=== PATIENT | male | born 1975 | race Caucasian/White ===

== ENCOUNTER 2017-07-09 05:34 | Observation (INO) | payer OTHER, SELFPAY ==
[2017-07-09] VITALS (11 sets, daily range): BP systolic 109–132; BP diastolic 68–91; PULSE 71–99; RESP 16–18; TEMP 36.8–38.7; O2SAT 93–100; BMI 26.8; BMI 26.7
--- NOTE | 2017-07-09 05:43 | CT_ITS ---
STUDY: CT ABDOMEN AND PELVIS WITHOUT CONTRAST REASON FOR EXAM: Male, 42 years old. Right lower quadrant pain, nausea RADIATION DOSAGE (If Supplied By Facility): CTDIvol = ( 8.56 ) mGy, DLP = ( 425.52 ) mGycm TECHNIQUE: Transaxial 2.5 mm images were obtained from the dome of the diaphragm to the symphysis pubis without oral contrast, and without intravenous contrast. Sagittal and coronal images were reconstructed. Noncontrast Individualized dose optimization techniques were used for this CT. COMPARISON: None. FINDINGS: The visualized lung bases are unremarkable. The visualized portions of the heart are within normal limits. Normal liver. Normal gallbladder and extrahepatic biliary system. Normal spleen. Normal pancreas. Normal bilateral adrenal glands. Normal right kidney. Normal left kidney. Normal visualized stomach. Normal small intestine. Normal colon. There is a tubular, thick-walled retrocecal appendix (>10 mm), consistent with acute appendicitis. There are multiple small appendicoliths the largest with proximal obstruction measures 0.63 cm. There is periappendiceal fat stranding.. Normal abdominal aorta. Normal inferior vena cava. Normal retroperitoneum. Decompressed Normal urinary bladder. Normal visualized prostate gland. Normal abdominal wall. Normal osseous structures. CT/Abdomen/Pelvis without Cont IMPRESSION: Acute appendicitis with periappendiceal inflammation, proximal obstructing small appendicolith. There is no abscess, collection, perforation or obstruction. These findings were discussed on the telephone with Dr. Johnson at 650 hrs. EST on 07/09/2017. Electronically Signed: Emma Monge MD at 6:52 EST , Service support ,
--- NOTE | 2017-07-09 05:44 | ED.VISSUMM ---
- ER Visit Summary Date of Service: 07/09/17 Chief Complaint: [Abdominal pain] History of Present Illness: The patient is a 42 M [who presents the emergency department with right lower abdominal pain. It started at 2 PM yesterday. It has progressively worsened. He has associated nausea. No fevers or chills. Bowel movements have been normal. Urination has been normal. He has had an umbilical hernia repair 9 years ago but no other abdominal surgeries. He does feel bloated. Appetite is decreased. The pain is worse with movement. He states is an 8 out of 10 with movement of 3 out of 10 with lying still] Physical Examination: [] WN WD NAD PERRL EOMI MMM NECK supple and nontender, no masses RRR no murmur rub or gallop, no peripheral edema, symmetric radial pulses CTAB no respiratory distress ABDOMEN is soft with tenderness to palpation in the right lower quadrant right side and right pelvis, normal bowel sounds, no distension, no rebound or guarding SKIN is warm and dry no rashes Alert and Oriented x3, CN II-XII in tact, no motor or sensory deficits, gait normal No lymphadenopathy Test Results: [] Emergency Department Course and Treatment: [Patient was given fluids pain medicine and nausea medicine. Screening labs were obtained. CT was obtained. Patient had a leukocytosis of 14.4. CT consistent with acute appendicitis. Patient was ordered 2 g of cefotetan 10. Dr. Sutton was contacted and will see the patient in the emergency department.] Treatment Plan: [] Disposition: [2 OR] Impression: [Acute appendicitis] This note was generated with [employer] dictation software. It may contain incorrect words, spelling, and punctuation that were not noted in review of the chart prior to signing ED Disposition - Plan for ED Patient: Chief Complaint: Abd Pain Referrals: Radha Mishra [Primary Care Provider] -
[2017-07-09] MEDS: Ondansetron 4 MG/2 ML Vial IV (05:53)
[2017-07-09] MEDS: 0.9% Normal Saline 1,000 ML 1000 ML IV (05:53)
[2017-07-09 06:09] LABS: Red Blood Cells-Urine 0 SEEN /hpf (0-5)
[2017-07-09 06:15] LABS: Color, Urine Yellow (Yellow); Glucose, Dipstick Normal (Normal); Ketone-Dipstick 15 mg/dl (Negative); Leukocyte Esterase-Dipstick 25 /ul (Negative); Nitrite-Dipstick Negative (Negative); Occult Blood-Urine Negative /ul (Negative); Protein-Dipstick 30 mg/dl (Negative); Specific Gravity, Urine 1.025 (1.002-1.030); Urine Clarity Clear (Clear); Urine Urobilinogen 1 mg/dl (Normal)
[2017-07-09 06:25] LABS: Absolute Lymphocyte Count 1.79 X10^3/ul (0.83-4.51); Absolute Neutrophil Count 11.5 X10^3/uL (2.0-7.7); Basophil# 0.02 X10^3/uL; Basophil% 0.1 % (0-1); Eosinophil# 0.09 X10^3/uL; Eosinophils% 0.6 % (0-5); Hematocrit 45.8 % (40-54); Hemoglobin 16.4 g/dl (13.0-16.5); Lymphocyte # 1.79 X10^3/ul (4.0); Lymphocyte % 12.5 % (19-41); Mean Corp Hgb Conc 35.8 g/gl (32-36); Mean Corpuscular Hgb 30.9 pg (27.0-32.0); Mean Corpuscular Volume 86.4 fL (80-94); Mean Platelet Vol. 10.7 fl (6.2-12.0); Monocyte# 0.98 X10^3/uL; Monocyte% 6.8 % (0-10); Neutrophil # 11.45 X10^3/uL (2.7-7.7); Neutrophil % 79.8 % (47-70); Platelet Count 295 K/mm3 (150-450); RBC Distribution Width CV 12.5 % (11.6-14.6); RBC Distribution Width SD 39.2 fl (35.1-43.9); White Blood Count 14.4 K/mm3 (4.4-11.0)
[2017-07-09 06:27] LABS: POSITIVE COUNT NO; POSITIVE DIFFERENTIAL NO; POSITIVE MORPHOLOGY NO
[2017-07-09 06:33] LABS: Urine Bilirubin Dipstick 1 mg/dL (Negative)
[2017-07-09 06:34] LABS: Bacteria RARE /hpf (None Seen); Mucous, Urine 2+ /hpf (<or=2+); Squamous Epithelial Cells - UA 0-5 SEEN /hpf (0-5); White Blood Cells 0-5 SEEN /hpf (0-5)
[2017-07-09 06:39] LABS: ALB/GLOB Ratio 1.1 RATIO (0.9-2.4); AST(SGOT) 23 U/L (15-37); Alanine Aminotransfer ALT/SGPT 56 U/L (16-61); Albumin, Serum 4.2 g/dL (3.2-5.0); Alkaline Phosphatase 79 U/L (45-117); Anion Gap 9 (5-15); BUN 10 mg/dL (7-18); Calcium,Total 9.2 mg/dL (8.5-10.1); Chloride 103 mmol/L (98-107); EST Glomerular Filtration Rate 87 mL/min (>60); Est Glom Filt Rate - Afr Amer 106 mL/min (>60); Estimated Creatinine Clearance 94.05 ml/min; Globulin 3.7 g/dL (2.2-4.2); Glucose 114 mg/dL (74-106); Potassium 3.7 mmol/L (3.5-5.1); Protein, Total 7.9 g/dL (6.4-8.2); Sodium Level 138 mmol/L (136-145)
--- NOTE | 2017-07-09 07:55 | ED.RN ---
PHARMACY CONTACTED FOR ATB
--- NOTE | 2017-07-09 08:05 | PCM.HP.STD ---
Problem List (1) Acute appendicitis Status: Acute Qualifiers: Acute appendicitis type: unspecified acute appendicitis type Qualified Code(s): K35.80 - Unspecified acute appendicitis History of Present Illness Date of Admission: 07/09/17 The patient is a 42 year old M who presented to the emergency room with right lower quadrant pain. He reports the pain started yesterday at 2 PM and it was in the umbilical region. It then traveled to the right lower quadrant. He is having nausea but no vomiting. He has no fevers or chills. He is having no other symptoms. The pain does not radiate. Past Medical History Allergies acetaminophen [From Vicodin] Allergy (Verified 07/09/17 05:37) Itching hydrocodone [From Vicodin] Allergy (Verified 07/09/17 05:37) Itching latex Allergy (Verified 07/09/17 05:37) Hives Home Medications: Ambulatory Orders Medication Instructions Recorded NK [NK] 07/09/17 Surgical History: - - Umbilical hernia repair with mesh Lives: Spouse/ Significant Other Smoking Status: Former smoker Alcohol: None Drugs: None - *Family History Paternal History Items: Diabetes, Heart Disease Review of Systems Constitutional: Denies: Anorexia, Chills, Fever HEENT: Denies: Difficulty Swallowing Cardiovascular: Denies: Chest Pain, Claudication Respiratory: Denies: Cough, Shortness of Breath Gastrointestinal: Reports: Abdominal Pain - Right lower quadrant pain, Nausea. Denies: Diarrhea, Vomiting Genitourinary: Denies: Dysuria Musculoskeletal: Denies: Joint Tenderness Skin: Denies: Dryness, Jaundice Neurological: Denies: Difficulty swallowing Psychiatric: Denies: Anxiety, Depression Hematologic/ Lymphatic: Denies: Adenopathy, Anemia VTE Information - Inpt Only VTE Present on Admission: No VTE Mechan Device Prophylaxis: SCD's VTE Pharm Prophylaxis ordered?: No Patient Problems: Active and Suspected Problems Acute appendicitis (Acute) - Physical Exam General: Alert, Oriented x3, Cooperative, No apparent distress HEENT: Atraumatic, PERRLA, EOMI Oral: Moist Mucosa Lungs: Normal air movement Cardiovascular: Regular rate, Regular Rhythm Abdomen: Soft, Non-Distended, Tender - Tender in the right lower quadrant with no guarding or rebound Neurological: Cranial nerves II-XII grossly intact Psych/Mental Status: Normal Affect, Appropriate Vital Signs Temp Pulse Resp BP Pulse Ox 98.8 F 99 18 132/91 H 99 07/09/17 05:35 07/09/17 05:35 07/09/17 05:35 07/09/17 05:35 07/09/17 05:35 Oxygen Delivery Method Room Air Weight: 176 lb 9.444 oz Body Mass Index (BMI) 26.8 Laboratory Tests Past 24 Hrs 07/09/17 07/09/17 07/09/17 05:35 05:35 06:05 WBC 14.4 H RBC 5.30 Hgb 16.4 Hct 45.8 MCV 86.4 MCH 30.9 MCHC 35.8 RDW 12.5 RDW Differential 39.2 Plt Count 295 MPV 10.7 Immature Gran % (Auto) 0.200 Neut % (Auto) 79.8 H Lymph % (Auto) 12.5 L [place] % (Auto) 6.8 Eos % (Auto) 0.6 Baso % (Auto) 0.1 Absolute Neuts (auto) 11.5 H Absolute Lymphs (auto) 1.79 Total Counted Not Reportable Sodium 138 Potassium 3.7 Chloride 103 Carbon Dioxide 26.0 Anion Gap 9 BUN 10 Creatinine 1.00 Estim Creat Clear Calc 94.05 Est GFR (MDRD) Af Amer 106 Est GFR (MDRD) Non-Af 87 BUN/Creatinine Ratio 10.0 Glucose 114 H Calcium 9.2 Total Bilirubin 1.30 H AST 23 ALT 56 Alkaline Phosphatase 79 Total Protein 7.9 Albumin 4.2 Globulin 3.7 Albumin/Globulin Ratio 1.1 Urine Color Yellow Urine Clarity Clear Urine pH 6.0 Ur Specific [place] 1.025 Urine Protein 30 H Urine Glucose (UA) Normal Urine Ketones 15 H Urine Occult Blood Negative Urine Nitrite Negative Urine Bilirubin 1 H Urine Urobilinogen 1 H Ur Leukocyte Esterase 25 H Urine RBC 0 SEEN Urine WBC 0-5 SEEN Ur Squamous Epith Cells 0-5 SEEN Urine Bacteria RARE Urine Mucus 2+ Clinical Impression(s) from Imaging Studies Abdomen/Pelvis CT 07/09/17 05:43 IMPRESSION: Acute appendicitis with periappendiceal inflammation, proximal obstructing small appendicolith. There is no abscess, collection, perforation or obstruction. These findings were discussed on the telephone with Dr. Johnson at 650 hrs. EST on 07/09/2017. Electronically Signed: Emma Monge MD at 6:52 EST , Service support , Assessment/Plan Active and Suspected Problems Acute appendicitis (Acute) 42-year-old male with acute appendicitis 1. The patient's CT is consistent with acute appendicitis with appendicoliths. He also has leukocytosis and right lower quadrant pain. 2. I discussed laparoscopic appendectomy possible open with the patient and his . I discussed the risks of the procedure including but not limited to bleeding, infection, injury to surrounding organs such as the bowels. The patient understands the risks and is willing to proceed with surgery. 3. The patient will be given antibiotics in the emergency room and admitted to the floor and taken this afternoon for laparoscopic appendectomy. Guerrero Sutton MD Pager: [facility] [address] Aleksander Willard, [address] [address] Office:
--- NOTE | 2017-07-09 08:09 | HP.PCM_ITS ---
Problem List (1) Acute appendicitis Status: Acute Qualifiers: Acute appendicitis type: unspecified acute appendicitis type Qualified Code (s): K35.80 - Unspecified acute appendicitis History of Present Illness Date of Admission: 07/09/17 The patient is a 42 year old M who presented to the emergency room with right lower quadrant pain. He reports the pain started yesterday at 2 PM and it was in the umbilical region. It then traveled to the right lower quadrant. He is having nausea but no vomiting. He has no fevers or chills. He is having no other symptoms. The pain does not radiate. Past Medical History Allergies acetaminophen [From Vicodin] Allergy (Verified 07/09/17 05:37) Itching hydrocodone [From Vicodin] Allergy (Verified 07/09/17 05:37) Itching latex Allergy (Verified 07/09/17 05:37) Hives Home Medications: Ambulatory Orders Medication Instructions Recorded NK [NK] 07/09/17 Surgical History: - - Umbilical hernia repair with mesh Lives: Spouse/ Significant Other Smoking Status: Former smoker Alcohol: None Drugs: None - *Family History Paternal History Items: Diabetes, Heart Disease Review of Systems Constitutional: Denies: Anorexia, Chills, Fever HEENT: Denies: Difficulty Swallowing Cardiovascular: Denies: Chest Pain, Claudication Respiratory: Denies: Cough, Shortness of Breath Gastrointestinal: Reports: Abdominal Pain - Right lower quadrant pain, Nausea. Denies: Diarrhea, Vomiting Genitourinary: Denies: Dysuria Musculoskeletal: Denies: Joint Tenderness Skin: Denies: Dryness, Jaundice Neurological: Denies: Difficulty swallowing Psychiatric: Denies: Anxiety, Depression Hematologic/ Lymphatic: Denies: Adenopathy, Anemia VTE Information - Inpt Only VTE Present on Admission: No VTE Mechan Device Prophylaxis: SCD's VTE Pharm Prophylaxis ordered?: No Patient Problems: Active and Suspected Problems Acute appendicitis (Acute) - Physical Exam General: Alert, Oriented x3, Cooperative, No apparent distress HEENT: Atraumatic, PERRLA, EOMI Oral: Moist Mucosa Lungs: Normal air movement Cardiovascular: Regular rate, Regular Rhythm Abdomen: Soft, Non-Distended, Tender - Tender in the right lower quadrant with no guarding or rebound Neurological: Cranial nerves II-XII grossly intact Psych/Mental Status: Normal Affect, Appropriate Vital Signs Temp Pulse Resp BP Pulse Ox 98.8 F 99 18 132/91 H 99 07/09/17 05:35 07/09/17 05:35 07/09/17 05:35 07/09/17 05:35 07/09/17 05:35 Oxygen Delivery Method Room Air Weight: 176 lb 9.444 oz Body Mass Index (BMI) 26.8 Laboratory Tests Past 24 Hrs 07/09/17 07/09/17 07/09/17 05:35 05:35 06:05 WBC 14.4 H RBC 5.30 Hgb 16.4 Hct 45.8 MCV 86.4 MCH 30.9 MCHC 35.8 RDW 12.5 RDW Differential 39.2 Plt Count 295 MPV 10.7 Immature Gran % (Auto) 0.200 Neut % (Auto) 79.8 H Lymph % (Auto) 12.5 L [place] % (Auto) 6.8 Eos % (Auto) 0.6 Baso % (Auto) 0.1 Absolute Neuts (auto) 11.5 H Absolute Lymphs (auto) 1.79 Total Counted Not Reportable Sodium 138 Potassium 3.7 Chloride 103 Carbon Dioxide 26.0 Anion Gap 9 BUN 10 Creatinine 1.00 Estim Creat Clear Calc 94.05 Est GFR (MDRD) Af Amer 106 Est GFR (MDRD) Non-Af 87 BUN/Creatinine Ratio 10.0 Glucose 114 H Calcium 9.2 Total Bilirubin 1.30 H AST 23 ALT 56 Alkaline Phosphatase 79 Total Protein 7.9 Albumin 4.2 Globulin 3.7 Albumin/Globulin Ratio 1.1 Urine Color Yellow Urine Clarity Clear Urine pH 6.0 Ur Specific [place] 1.025 Urine Protein 30 H Urine Glucose (UA) Normal Urine Ketones 15 H Urine Occult Blood Negative Urine Nitrite Negative Urine Bilirubin 1 H Urine Urobilinogen 1 H Ur Leukocyte Esterase 25 H Urine RBC 0 SEEN Urine WBC 0-5 SEEN Ur Squamous Epith Cells 0-5 SEEN Urine Bacteria RARE Urine Mucus 2+ Clinical Impression(s) from Imaging Studies Abdomen/Pelvis CT 07/09/17 05:43 IMPRESSION: Acute appendicitis with periappendiceal inflammation, proximal obstructing small appendicolith. There is no abscess, collection, perforation or obstruction. These findings were discussed on the telephone with Dr. Johnson at 650 hrs. EST on 07/09/2017. Electronically Signed: Emma Monge MD at 6:52 EST , Service support , Assessment/Plan Active and Suspected Problems Acute appendicitis (Acute) 42-year-old male with acute appendicitis 1. The patient's CT is consistent with acute appendicitis with appendicoliths. He also has leukocytosis and right lower quadrant pain. 2. I discussed laparoscopic appendectomy possible open with the patient and his . I discussed the risks of the procedure including but not limited to bleeding, infection, injury to surrounding organs such as the bowels. The patient understands the risks and is willing to proceed with surgery. 3. The patient will be given antibiotics in the emergency room and admitted to the floor and taken this afternoon for laparoscopic appendectomy. Guerrero Sutton MD Pager: [facility] [address] [place]ksander Willard, [address] [address] Office:
[2017-07-09] MEDS: Bupiv/Epi 0.5% Mpf 30 ML Vial (09:23)
--- NOTE | 2017-07-09 10:00 | EKG12_ITS ---
Test Reason : PREOP Blood Pressure : / mmHG Vent. Rate : 076 BPM Atrial Rate : 076 BPM P-R Int : 140 ms QRS Dur : 090 ms QT Int : 362 ms P-R-T Axes : 029 013 -19 degrees QTc Int : 407 ms Normal sinus rhythm Low voltage QRS (limb leads) Poor R wave progression Nonspecific T wave abnormality Abnormal ECG Confirmed by MEGHAN GUZMAN, PIERCE ([id number]), general expeditor ALEXANDRA DANIELLE ([id number]) on 07/16/2017 1:36:44 PM Referred By: GINGER Confirmed By:PIERCE CHRISTIANSON MD
[2017-07-09] MEDS: 0.9% NaCl Peripheral Flush Adult/Peds IV (10:10)
[2017-07-09] MEDS: HYDROmorphone 1 MG/ML Syringe IV (10:13)
--- NOTE | 2017-07-09 13:00 | APP_PTH ---
PATIENT: SINDY DANIELLE LOC: MS2 U#:[id number] AGE/SX: 42/M [place] [facility] [place] RE07/09/[address]: Dr. Guerrero Sutton MD : [id number] BED: 1 DIS: 07/10/2017 SPEC #: [id number] RECD: 07/10/17 08:23 STATUS: CHRISTIAN ANSHUL #: [id number] THEO: 07/09/17 13:[address]: Guerrero Sutton DEPT: SURGICAL PATHOLOGY RECD BY: Tanna Ware ENTERED: 07/10/17 11:42 SP TYPE: APPENDIX OTHR DR: Dr. Radha Mishra, DO Tissues: Appendix, NOS Procedures: Surgery Specimen Level III HEADER OPERATION: Laparoscopic, appendectomy PRE-OP DIAGNOSIS: Acute appendicitis TISSUE SUBMITTED: Appendix MICROSCOPIC DIAGNOSIS Appendix, appendectomy: Acute necrotizing appendicitis. Acute serositis. AM:salty 07/11/17 MICROSCOPIC DESCRIPTION Slides are reviewed. GROSS DESCRIPTION Received is one container labeled with the patient's name and designated appendix. The specimen consists of an L-shaped appendix measuring 8.5 cm in length and up to 1 cm in average diameter. The attached periappendiceal adipose tissue measures up to 2.5 cm in width. The serosa is congested and covered with benton, purulent exudate. No obvious perforation is identified. The lumen is filled with purulent fecal material. No fecalith is identified. Material Assistant sections are submitted in one cassette. / SJ:salty 07/10/17 TC:2 CPT: 23870
--- NOTE | 2017-07-09 14:34 | OP.PCM_ITS ---
Problem List (1) Acute appendicitis Status: Acute Qualifiers: Acute appendicitis type: unspecified acute appendicitis type Qualified Code (s): K35.80 - Unspecified acute appendicitis Report of Operation Date of Procedure: 07/09/17 Pre-Operative Diagnosis: Acute appendicitis Post-Operative Diagnosis: Same Surgery/Procedure Performed:: Laparoscopic appendectomy Description of Surgical Findings:: Inflamed appendix Specimen's removed: Appendix Description of Procedure: The patient was brought into the operating room and general anesthesia was induced. The left arm was tucked and the abdomen was prepped and draped in usual sterile fashion. A small midline incision was made superior to the umbilicus and deepened to the level of the fascia. The fascia was elevated and incised. The peritoneum was also elevated and incised. A finger sweep was performed and a balloon trocar was placed into the abdomen and inflated. The abdomen was insufflated to 15 mmHg and the camera was inserted and the abdomen was inspected for any injuries upon entering the abdomen. There were none. The patient was placed in Trendelenburg position and a 5 mm ports placed in the left lower quadrant and suprapubic areas under direct visualization. Next using atraumatic bowel graspers the appendix was identified. The appendix was grasped and elevated and a harmonic scalpel was used to take down the mesoappendix. A stapler was used to come across the base of the appendix. The appendix was then placed in Endo Catch bag and removed through the umbilical incision. The staple line was inspected and found to be hemostatic and intact. The 2 5 mm ports are removed under direct visualization. The balloon trocar was deflated and removed and all the air was removed from the abdomen. The umbilical incision fascia was closed with an 0 Vicryl [id number] suture. The incisions were then irrigated with saline and dried. Local anesthetic was injected into the incision sites. The skin incisions were then closed with interrupted 4-0 Monocryl suture and Steri-Strips. Bandages were applied and the patient was awoken and taken to PACU in stable condition. Patient tolerated the procedure well. - Admit VTE Documentation VTE Mechan Device Prophylaxis: SCD's
[2017-07-09] MEDS: Dextrose 5%-Lactated Ringers 1,000 ML 125 ML IV ×2 (15:40→22:16)
[2017-07-09] MEDS: Acetaminophen 325 MG Tablet 650 MG PO (16:04)
[2017-07-09] MEDS: Pantoprazole Sodium 40 MG Tablet PO (16:05)
[2017-07-10 03:23] VITALS: BP 110/72; PULSE 81; RESP 16; TEMP 37.6; O2SAT 94
[2017-07-10] MEDS: Acetaminophen 325 MG Tablet 650 MG PO (03:38)
[2017-07-10 06:10] VITALS: TEMP 37.1
[2017-07-10 08:00] VITALS: BP 103/66; PULSE 74; RESP 16; TEMP 37.2; O2SAT 94
--- NOTE | 2017-07-10 08:45 | PCM.DC.APPY ---
Discharge Diet: Light diet - advance as tolerated Discharge Activity: May Shower May shower in (days): 1 Lifting Restrictions: 20 lbs for 2 weeks, ok to return to light duty when pt feels up to it Call your doctor if your incision/area has: Continuous Slow Oozing, Sudden Increased Bleeding, Increased Pain/ Swelling, Increased Redness, Foul Smelling Discharge Call your doctor if you observe: Fever of 101 or Higher Suture Line Care: Avoid Pulling/Pushing, Avoid Pinching/Bending Additional Dressing/Incision Instructions:: Keep dressing clean and dry. Change or remove dressing in 2 days. Leave steri strips for 1 week. May protect with a gauze bandaid. Medications to take at Discharge Oxycodone [Oxyir] 5 - 10 mg PO Q4H PRN PRN 5 Days #10 tablet 07/10/17 Allergies/Adverse Reactions: Allergies acetaminophen [From Vicodin] Allergy (Verified 07/09/17 05:37) Itching hydrocodone [From Vicodin] Allergy (Verified 07/09/17 05:37) Itching latex Allergy (Verified 07/09/17 05:37) Hives The following prescriptions were given: Oxycodone [Oxyir] 5 - 10 mg PO Q4H PRN PRN 5 Days #10 tablet PRN Reason: Mod-Severe Pain (4-10/10) Primary Care Physician: Radha Mishra [Primary Care Provider] - Please Follow Up With: Guerrero Sutton MD When: call tomorrow to make 2 week follow up appt [phone]
--- NOTE | 2017-07-10 08:47 | PCM.DC.SUM ---
Discharge Date and Diagnosis - Problem List Patient Problems: Active and Suspected Problems Acute appendicitis (Acute) Date of Admission: 07/09/17 Date of Discharge: 07/10/17 - Primary Discharge Diagnosis Active and Suspected Problems Acute appendicitis (Acute) Hospital Course and Treatment Imaging Results: Clinical Impression(s) from Imaging Studies Abdomen/Pelvis CT 07/09/17 05:43 IMPRESSION: Acute appendicitis with periappendiceal inflammation, proximal obstructing small appendicolith. There is no abscess, collection, perforation or obstruction. These findings were discussed on the telephone with Dr. Johnson at 650 hrs. EST on 07/09/2017. Electronically Signed: Emma Monge MD at 6:52 EST , Service support , Operations: appendectomy Procedures: None Summary of Care Provided: The patient is a 42 year old M who presented to the emergency room with right lower quadrant pain. A CT revealed acute appendicitis. He was taken for laparoscopic appendectomy. Following surgery he was admitted to the floor. He tolerated dinner. He did feel some bloating but was passing gas with no nausea or vomiting. He was discharged home in stable condition and asked to call me if he develops any nausea or vomiting or increasing pain. Discharge Diet: Light diet - advance as tolerated Discharge Activity: May Shower May shower in (days): 1 Call your doctor if your incision/area has: Continuous Slow Oozing, Sudden Increased Bleeding, Increased Pain/ Swelling, Increased Redness, Foul Smelling Discharge Call your doctor if you observe: Fever of 101 or Higher Suture Line Care: Avoid Pulling/Pushing, Avoid Pinching/Bending Additional Dressing/Incision Instructions:: Keep dressing clean and dry. Change or remove dressing in 2 days. Leave steri strips for 1 week. May protect with a gauze bandaid. Home Medications: Medications to take at Discharge Oxycodone [Oxyir] 5 - 10 mg PO Q4H PRN PRN 5 Days #10 tablet 07/10/17 Following Prescrptions Were Given to Patient: Oxycodone [Oxyir] 5 - 10 mg PO Q4H PRN PRN 5 Days #10 tablet PRN Reason: Mod-Severe Pain (4-03/11) Primary Care Physician: Radha Mishra [Primary Care Provider] - Please Follow Up With: Guerrero Sutton MD When: call tomorrow to make 2 week follow up appt [phone] Meaningful Use Info Meaningful Use Diagnoses (Choose all that apply): None applicable
== END 2017-07-10 09:59 | disposition home or self-care (01) ==
LOC: ED 09:01 → MS2 09:19
PROVIDERS: Admitting Provider Surgery; Emergency Provider Emergency Medicine; Family Provider Family Medicine; PCP Family Medicine; Visit Provider Surgery
PROC: 0DTJ4ZZ Resection of Appendix, Percutaneous Endoscopic Approach (ICD-10-PCS; CPT 44970; principal; 2017-07-09 12:40)
DX: K35.80 Unspecified acute appendicitis (principal); Z87.891 Personal history of nicotine dependence
CPT/HCPCS: 44970; 74176; 80053; 81001; 85025; 88304; 93005; 96361; 96365; 96375; 99218; 99284; J7030; A4216; G0378; J2405

== ENCOUNTER 2017-08-24 08:18 | Emergency (ER) | payer OTHER, SELFPAY ==
[2017-08-24 08:19] VITALS: BP 143/86; PULSE 65; RESP 15; TEMP 35.9; BMI 29.8
--- NOTE | 2017-08-24 08:32 | RAD_ITS ---
STUDY: X-RAY - LEFT FOOT CLINICAL: Male, 42 years old. Left foot pain after dropping piano on the top of the foot. TECHNIQUE: 3 view(s) of the foot. COMPARISON: None. FINDINGS: Normal talus, calcaneus, and tarsal bones. Normal visualized subtalar, talonavicular, calcaneocuboid, tarsal and tarsometatarsal articulations. Normal metatarsi. Normal metatarsophalangeal joint of the great toe. Normal tibial and fibular sesamoid bones. Normal interphalangeal joint of the great toe. Normal phalanges of the great toe. Normal second through fifth metatarsophalangeal joints. Normal interphalangeal joints and phalanges of the lesser toes. The soft tissue structures are unremarkable. There is no demonstrated fracture. RAD/Foot min 3 Views IMPRESSION: 1. No demonstrated fracture, bony destruction or dislocation. 2. Soft tissue structures are unremarkable. Electronically Signed: Tami Aguilera MD at 9:04 EDT Tel , Service support ,
--- NOTE | 2017-08-24 09:08 | ED.DCSUM_ITS ---
- ER Visit Summary Date of Service: 08/24/17 Chief Complaint: [Injury left foot] History of Present Illness: The patient is a 42 M [presents to the emergency department with injury to his left foot that occurred yesterday. Patient states that he was helping somebody move a piano on his left foot rolled under him. Patient initially did not think much of it however when he try to drive home and he pushed in the clutch with his left foot he had a lot of discomfort. Patient able to walk on the side of his foot.] Physical Examination: [Left foot-patient has tenderness palpation over the medial arch of the foot that seems to reproduce his pain. No significant soft tissue swelling noted. There is no ecchymosis or bruising noted. Neurovascularly intact. No pain about the ankle.] Test Results: [X-rays of the left foot were read as normal] Emergency Department Course and Treatment: [Patient did not want a postop shoe but will be given crutches for comfort.] Treatment Plan: Patient advised to ice and elevate extremity. Patient advised to use Motrin or Tylenol for discomfort. Crutches as needed. [] Disposition: [Discharged home in stable condition]. Patient advised to follow- up with primary care physician in 7-10 days. Impression: [Left foot sprain] This note was generated with [employer] dictation software. It may contain incorrect words, spelling, and punctuation that were not noted in review of the chart prior to signing ED Disposition - Plan for ED Patient: Chief Complaint: Lower Extremity Injury Referrals: Radha Mishra [Primary Care Provider] -
--- NOTE | 2017-08-24 09:08 | ED.DEP ---
ED Disposition - Plan for ED Patient: Chief Complaint: Lower Extremity Injury Instructions: ED Sprain Foot Referrals: Radha Mishra [Primary Care Provider] - 5-7 Days
[2017-08-24 09:12] VITALS: BP 120/75; PULSE 63; RESP 17; O2SAT 96
== END 2017-08-24 09:30 | disposition home or self-care (01) ==
LOC: ED 09:21
PROVIDERS: Emergency Provider Emergency Medicine; Family Provider Family Medicine; PCP Family Medicine
DX: S93.602A Unspecified sprain of left foot, initial encounter (principal); X50.1XXA Overexertion from prolonged static or awkward postures, initial encounter; Y93.89 Activity, other specified; Y92.9 Unspecified place or not applicable
CPT/HCPCS: 73630; 99283

== ENCOUNTER → 2021-02-01 16:57 | Outpatient (CLI) | payer OTHER, SELFPAY | PROVIDERS: PCP Family Medicine; Visit Provider Physician Assistant | DX: U07.1 COVID-19 (principal) | CPT/HCPCS: 87635; U0005; U0003 ==